=== PATIENT | female | born 1975 | race Caucasian/White ===

== ENCOUNTER 2023-07-09 01:18 | Emergency (ER) | payer OTHER, SELFPAY ==
--- NOTE | ~2023-07-09 | CT_ITS ---
EXAMINATION: CT ABDOMEN AND PELVIS WITHOUT CONTRAST CLINICAL INFORMATION: Abdominal pain. COMPARISON: None available. TECHNIQUE: Multidetector volumetric imaging was performed from the superior aspect of the liver through the pubic symphysis. Sagittal and coronal reformatted images were obtained on the technologist's workstation. This CT examination was performed using dose optimization techniques as appropriate, variously including the following: *Automated exposure control *Adjustment of mA and/or kV according to patient size (this includes techniques or standardized protocols for targeted exams where dose is matched to indication/reason for exam; i.e. extremities or head) *Use of iterative reconstruction technique DLP: 438 mGy-cm FINDINGS: LUNG BASES: The visualized lung bases are unremarkable. LIVER, GALLBLADDER, AND BILIARY TREE: The liver is normal in size, shape, and attenuation. No focal hepatic lesion or biliary ductal dilatation is present. The gallbladder is unremarkable with no evidence of radiopaque gallstones, gallbladder wall thickening, or obvious pericholecystic inflammatory changes. PANCREAS: Unremarkable. SPLEEN: Unremarkable. ADRENAL GLANDS: Unremarkable. KIDNEYS AND URETERS: The kidneys are normal in size, shape, and attenuation. No hydronephrosis, hydroureter, or calculi seen. No perinephric stranding. BLADDER: Unremarkable. GASTROINTESTINAL TRACT: There is diffuse mild to moderate colonic thickening. The appendix is not identified. ABDOMINAL WALL: No significant hernia is appreciated. LYMPH NODES: Normal. VASCULAR: Unremarkable. PELVIC VISCERA: An IUD is in place. There is a small amount of free fluid within the pelvis. OSSEOUS STRUCTURES: Unremarkable. CT/CT abdomen pelvis wo IV con IMPRESSION: Diffuse colonic thickening consistent with a diffuse colitis. Small amount of free fluid within the pelvis. Fleischner guidelines were followed.
[2023-07-09 01:26] VITALS: BP 118/72; PULSE 86; RESP 16; TEMP 36.8; O2SAT 97; BMI 26.9
[2023-07-09 01:42] LABS: Basophils Percent Auto 0.2 % (0-2); Eosinophils Absolute Auto 0.1 X10*3/uL (0.0-0.4); Eosinophils Percent Auto 0.6 % (0-4); Hematocrit 40.2 % (37.0-47.0); Hemoglobin 13.2 g/dl (12.0-16.0); Imm Gran Abs Auto 0.02 X10*3/uL (0.00-0.03); Imm Gran Pct Auto 0.2 % (0.0-0.4); Lymphocytes Absolute Auto 1.2 X10*3/uL (1.2-4.9); Lymphocytes Percent Auto 10.5 % (20-40); MANUAL DIFF FLAG NO; Mean Corpuscular HGB Conc 32.8 g/dl (31.0-35.0); Mean Corpuscular Hemoglobin 26.7 pg (27.0-33.0); Mean Corpuscular Volume 81.4 fL (80.0-98.0); Mean Platelet Volume 10.3 fL (9.4-12.3); Monocytes Absolute Auto 0.6 X10*3/uL (0.1-1.2); Monocytes Percent Auto 5.2 % (2-11); Neutrophils Absolute Auto 9.8 x10*3/uL (2.0-8.3); Neutrophils Percent Auto 83.3 % (45-73); Platelet Count 178 X10*3/uL (160-400); Red Blood Count 4.94 X10*6/uL (4.20-5.50); Red Cell Distribution Width 13.2 % (11.0-16.0); White Blood Count 11.8 X10*3/uL (4.8-10.8)
[2023-07-09 01:48] LABS: Appearance Urine Turbid; Color Urine Dark Yellow; Glucose Urine UA Negative (Negative); Leukocyte Esterase Urine Small (1+) (Negative); Nitrite Urine Negative (Negative); PH 5.5 (5.0-9.0); Specific Gravity - Urine >= 1.030 (1.005-1.025); UMIC TRIGGER UACC YES; Urine Blood Small (1+) (Negative); Urine Ketones 15 mg/dL (Negative); Urine Protein 30 (1+) mg/dL (Neg-Trace)
[2023-07-09 01:56] LABS: Alanine Aminotransferase 8 U/L (0-31); Alkaline Phosphatase 80 U/L (39-117); Anion Gap 12 (12-20); Aspartate Amino Transferase 20 U/L (5-31); Bilirubin Total 0.5 mg/dL (0.0-1.0); Blood Urea Nitrogen 6 mg/dL (9-16); Calcium 8.9 mg/dL (8.4-10.2); Carbon Dioxide 23 mmol/L (22-29); Chloride 104 mmol/L (96-108); Creatinine Clr Calc Pharmacy 63.2; Estimated Glomerular Filt Rate > 60; Glucose Random 121 mg/dL (60-115); Lipase 24 U/L (8-78); Potassium 3.3 mmol/L (3.3-5.1); Sodium 136 mmol/L (135-145); Total Protein 7.5 g/dL (6.5-8.0)
[2023-07-09 01:58] LABS: Bacteria Urine 4+ (None Seen); Squamous Epithelial Cell Urine >20 /HPF (0-2); UACC Culture Trigger YES
--- NOTE | 2023-07-09 02:41 | ED.ABDPAIN ---
HPI - Abdominal Pain General Chief Complaint: Nausea/Vomiting/Diarrhea Stated Complaint: Diarrhea, Abd Pain Time Seen by Provider: 07/09/23 02:33 Source: patient Mode of arrival: ambulatory Limitations: no limitations History of Present Illness HPI narrative: Patient otherwise healthy just returned from [facility] 3 days ago was sent been having diffuse abdominal cramping with diarrhea no nausea no vomiting of unable to hold down any liquids because of pain pain is localized mostly in the mid abdomen no urinary symptoms no chills no other family member sick Related Data Previous Rx's Medication Instructions Recorded ciprofloxacin HCl 500 mg tablet 500 mg PO BID #10 tabs 07/09/23 (Cipro) dicyclomine 20 mg tablet 20 mg PO QID PRN abdominal pain 07/09/23 #20 tabs metronidazole 500 mg tablet 500 mg PO BID 5 days #10 tabs 07/09/23 ondansetron 4 mg disintegrating 4 mg PO Q6-8H PRN nausea and 07/09/23 tablet vomiting #7 tabs Allergies Allergy/AdvReac Type Severity Reaction Status Date / Time clindamycin AdvReac Unknown Verified 07/09/23 01:25 iodine AdvReac Rash Verified 07/09/23 01:24 Latex, Natural Rubber AdvReac Hives Verified 07/09/23 01:24 Penicillins AdvReac Anaphylaxis Verified 07/09/23 01:23 seafood AdvReac Hives Verified 07/09/23 01:26 Review of Systems Review of Systems Yes all other systems are reviewed and are negative [facility] Social History Social History Alcohol intake: never Smoked in Last 30 Days: No Use of substances other than those prescribed or required for medical reasons: No Advance Directives: No Advance Directives Information Provided: Yes Patient : No Physical Exam ED Vital Signs: Vital Signs - 24 hr 07/09/23 01:26 07/09/23 04:00 07/09/23 05:50 Temperature 98.3 F Pulse Rate 86 68 67 Respiratory Rate 16 14 14 Blood Pressure 118/72 124/79 128/83 Pulse Oximetry 97 98 99 Oxygen Delivery Method Room Air Room Air Room Air 07/09/23 07:12 Temperature Pulse Rate 68 Respiratory Rate 18 Blood Pressure 122/75 Pulse Oximetry 99 Oxygen Delivery Method Room Air BMI result Body Mass Index 26.9 Appearance: Alert. Oriented X3. Mild discomfort Eyes: No pallor/icterus ENT: Pharynx normal. Oral Mucosa moist Neck: Normal inspection. Neck supple. CVS: Normal heart rate and rhythm. Pulses normal. Respiratory: No respiratory distress. Equal air entry bilateral, no wheezing/rales/rhonchi Abdomen: Soft , diffuse mid abdominal tenderness no rebound tenderness or guarding Bowel sounds are present, no mass palpable, no CVA tenderness Skin: Skin warm and dry. Normal skin color. Normal skin turgor. Extremities: No lower extremity edema. No calf tenderness Neuro: Oriented X 3. Medical Decision Making Medical Decision Making [facility] Narrative: Patient acute enteritis came from [facility] food induced discharge patient home on Cipro and Flagyl for 5 days Differential Diagnosis Differential Diagnoses: The differential diagnosis associated with the presentation includes Pancreatitis/gastritis/colitis Lab Data [facility] Lab Attestation statement: I reviewed the patient's lab results. 07/09/23 01:36 07/09/23 01:36 Labs: Lab Results 07/09/23 07/09/23 07/09/23 Range/Units 01:36 01:41 06:09 WBC 11.8 H (4.8-10.8) X10*3/uL RBC 4.94 (4.20-5.50) X10*6/uL Hgb 13.2 (12.0-16.0) g/dl Hct 40.2 (37.0-47.0) % MCV 81.4 (80.0-98.0) fL MCH 26.7 L (27.0-33.0) pg MCHC 32.8 (31.0-35.0) g/dl RDW 13.2 (11.0-16.0) % Plt Count 178 (160-400) X10*3/uL MPV 10.3 (9.4-12.3) fL Immature Gran % (Auto) 0.2 (0.0-0.4) % Neut % (Auto) 83.3 H (45-73) % Lymph % (Auto) 10.5 L (20-40) % [place] % (Auto) 5.2 (2-11) % Eos % (Auto) 0.6 (0-4) % Baso % (Auto) 0.2 (0-2) % Lymph # (Auto) 1.2 (1.2-4.9) X10*3/uL [place] # (Auto) 0.6 (0.1-1.2) X10*3/uL Eos # (Auto) 0.1 (0.0-0.4) X10*3/uL Baso # (Auto) 0.0 (0.0-0.2) X10*3/uL Abs Immat Gran (auto) 0.02 (0.00-0.03) X10*3/uL Absolute Neuts (auto) 9.8 H (2.0-8.3) x10*3/uL Absolute Nucleated RBC 0.000 (0.0-0.012) X10*3/uL Nucleated RBC % (auto) 0.0 (0.0-0.2) /100WBC Sodium 136 (135-145) mmol/L Potassium 3.3 (3.3-5.1) mmol/L Chloride 104 (96-108) mmol/L Carbon Dioxide 23 (22-29) mmol/L Anion Gap 12 (12-20) BUN 6 L (9-16) mg/dL Creatinine 0.86 (0.5-1.4) mg/dL Estim Creat Clear Calc 63.2 Estimated GFR > 60 Random Glucose 121 H (60-115) mg/dL Lactic Acid 0.8 (0.5-2.0) mmol/L Calcium 8.9 (8.4-10.2) mg/dL Total Bilirubin 0.5 (0.0-1.0) mg/dL AST 20 (5-31) U/L ALT 8 (0-31) U/L Alkaline Phosphatase 80 (39-117) U/L Total Protein 7.5 (6.5-8.0) g/dL Albumin 4.0 (3.5-5.0) g/dL Lipase 24 (8-78) U/L Urine Color Dark Yellow Urine Appearance Turbid Urine pH 5.5 (5.0-9.0) Ur Specific [place] >= 1.030 H (1.005-1.025) Urine Protein 30 (1+) H (Neg-Trace) mg/dL Urine Glucose (UA) Negative (Negative) mg/dL Urine Ketones 15 (Negative) mg/dL Urine Blood Small (1+) H (Negative) Urine Nitrite Negative (Negative) Ur Leukocyte Esterase Small (1+) H (Negative) Urine RBC 11-20 H (0-2) /HPF Urine WBC 11-20 H (0-5) /HPF Ur Squamous Epith Cells >20 (0-2) /HPF Urine Bacteria 4+ (None Seen) Hyaline Casts 3-5 (0-2) /LPF Urine Test NEGATIVE (NEGATIVE) Independent Interpretation I performed an independent interpretation of an: CT Scan Interpretation: Terminal ileum inflammation Radiology Impression Discussion of test interpretation with radiology: I have reviewed the radiologist's reading. Radiologist Impression: Colitis Medications Administered Discontinued Medications Generic Name Dose Route Start Last Admin Trade Name Freq PRN Reason Stop Dose Admin Dicyclomine HCl 20 mg 07/09/23 05:59 07/09/23 06:08 Dicyclomine Hcl 10 Mg Capsule PO 07/09/23 06:00 20 mg ONCE ONE Administration Sodium Chloride 1,000 mls @ 999 mls/hr 07/09/23 02:53 07/09/23 05:00 Ns IV 07/09/23 03:53 Infused .Q1H1M ONE Infusion Levofloxacin 500 mg 07/09/23 03:59 07/09/23 04:47 Levofloxacin 500 Mg Tablet PO 07/09/23 04:00 500 mg ONCE ONE Administration Metronidazole 500 mg 07/09/23 03:59 07/09/23 04:47 Metronidazole 500 Mg Tablet PO 07/09/23 04:00 500 mg ONCE ONE Administration Morphine Sulfate 4 mg 07/09/23 02:53 07/09/23 03:18 Morphine Sulfate 4 Mg/Ml Cartridge IVPUSH 07/09/23 02:54 4 mg ONCE ONE Administration Protocol Ondansetron HCl 4 mg 07/09/23 02:56 07/09/23 03:18 Ondansetron Hcl 4 Mg/2 Ml Vial IVPUSH 07/09/23 02:57 4 mg ONCE ONE Administration Discharge Plan Discharge Clinical Impression: Enteritis Patient Disposition: Home, Self-Care Instructions: Gastroenteritis (ED) Additional Instructions: Drink plenty of fluids Take antibiotic as prescribed Medications for abdominal cramping and nausea as prescribed Prescriptions: New ciprofloxacin HCl [Cipro] 500 mg tablet 500 mg PO BID Qty: 10 0RF metronidazole 500 mg tablet 500 mg PO BID 5 Days Qty: 10 0RF dicyclomine 20 mg tablet 20 mg PO QID PRN (Reason: abdominal pain) Qty: 20 0RF ondansetron 4 mg tablet,disintegrating 4 mg PO Q6-8H PRN (Reason: nausea and vomiting) Qty: 7 0RF Interventions: ED Discharge Assessment Last Done: 07/09/23 07:15 Discharge Date/Time: 07/09/23 07:15
[2023-07-09] MEDS: ondansetron HCL 4 MG/2 ML VIAL IVPUSH (03:18)
[2023-07-09] MEDS: Morphine Sulfate 4 MG/ML CARTRIDGE IVPUSH (03:18)
[2023-07-09] MEDS: 0.9 % Sodium Chloride 1,000 ML 999 ML IV (03:22)
[2023-07-09 03:38] LABS: UPreg QC Valid YES; Urine Pregnancy NEGATIVE (NEGATIVE)
[2023-07-09 04:00] VITALS: BP 124/79; PULSE 68; RESP 14; O2SAT 98
[2023-07-09] MEDS: metroNIDAZOLE 500 MG TABLET PO (04:47)
[2023-07-09] MEDS: levoFLOXacin 500 MG TABLET PO (04:47)
[2023-07-09 05:50] VITALS: BP 128/83; PULSE 67; RESP 14; O2SAT 99
[2023-07-09] MEDS: Dicyclomine HCl 10 MG CAPSULE 20 MG PO (06:08)
--- NOTE | 2023-07-09 06:24 | PC.NURSE ---
Pt c/o abdominal pain, nausea and diarrhea X2 days. Meds and fluids given per NOV, #20 IV placed in R-AC. CT completed. Lactic pending. PT in bed resting, call rdz in place.
[2023-07-09 06:25] LABS: Lactic Acid 0.8 mmol/L (0.5-2.0)
[2023-07-09 07:12] VITALS: BP 122/75; PULSE 68; RESP 18; O2SAT 99
== END 2023-07-09 07:15 | disposition home or self-care (01) ==
PROVIDERS: Emergency Provider Internal Medicine; PCP Internal Medicine
DX: K52.9 Noninfective gastroenteritis and colitis, unspecified (principal); R11.2 Nausea with vomiting, unspecified
CPT/HCPCS: 36415; 74176; 80053; 81001; 81025; 83605; 83690; 85025; 87086; 87088; 87186; 96361; 96374; 96375; 99284; J2270; J2405

== ENCOUNTER 2023-07-10 03:02 | Emergency (ER) | payer OTHER, SELFPAY ==
[2023-07-10 03:05] VITALS: BP 132/81; PULSE 90; RESP 18; TEMP 36.6; O2SAT 98; BMI 26.9
--- OUTSIDE RECORDS SUMMARY | 2023-07-10 03:20 | XMS_ITS | Continuity of Care Document ---
Author Name Unknown Organization [facility] Address [address] [place] [address]- Care Team Providers Care Compounder Helper Name Role Phone Ric SELLERS, Bonnie Primary Care Physician [phone] [place] [facility] [place]20 [facility] [address] [place], [place] [address] Attending Physician: Tere Felipe Admitting Physician: AdmtrTere Referring Physician: Admtr, Ar8 Allergies, Adverse Reactions, Alerts Substance Reaction Severity Status doxycycline emesis Active clindamycin Active Latex erythema Active iodine topical Skin rash Active penicillins Active Seafood SWELLING,ITCHING Active Immunizations Given and Recorded Vaccine Date Status Refusal Reason tetanus/diphtheria/pertussis, acel(Tdap) 06/19/20 Given influenza virus vaccine, inactivated 06/19/20 Give n Medications Compression Stockings See Instructions, # 1 each, Refills 2, Tot. Refills 2, Maintenance, surgical, thigh high length 20-30 mm Hg dx: I83.899, 06/24/20 15:06:00 EDT, Supply Start Date: 06/24/20 Status: Ordered Mirena 52 mg intrauteral device 1 each = 52 mg, Intrauterine, Once, # 1 each, 0 Refills, Maintenance Start Date: 03/22/12 Status: Ordered Problem List Condition Effective Dates Status Health Status Inform ant Abnormal cervical smear(Confirmed) Active Acne(Confirmed) Active Depressive disorder(Confirmed) Active Hypoglycemia, Unspecified(Confirmed) Active Irregular Menstrual Cycle(Confirmed) Active Menorrhagia with irregular cycle(Confirmed) Active Migraine headache(Confirmed) Active Social History Social History Type Response Smoking Status Never smoker; Tobacc o user in household: No entered on: 07/01/15 Sex Female
--- OUTSIDE RECORDS SUMMARY | 2023-07-10 03:20 | XMS_ITS | Continuity of Care Document ---
Author Name Unknown Organization [facility] Address [address] [place] [address]- Care Team Providers Care Equipment Service Technician Name Role Phone Ric SELLERS, Bonnie Primary Care Physician Encounter [facility] [place] Date(s): 09/19/20 - 10/19/20 [facility] [address] [place], [place] [address] Allergies, Adverse Reactions, Alerts Substance Reaction Severity Status doxycycline emesis Active clindamycin Active iodine topical Skin rash Active penicillins Active Latex erythema Active Seafood SWELLING,ITCHING Active Immunizations Given and [...]
--- OUTSIDE RECORDS SUMMARY | 2023-07-10 03:20 | XMS_ITS | Continuity of Care Document ---
Author Name Unknown Organization [facility] Address [address] [place] [address]- Care Team Providers Care Marketing Support Assistant Name Role Stallion Manager MD, Fabian Piper Primary Care Physician [place] [facility] [place]/31/22 - 09/30/22 [facility] [address] [address]- Allergies, Adverse Reactions, Alerts Substance Reaction Severity Status doxycycline emesis Active clindamycin Active iodine topical Skin rash Active penicillins Active Latex erythema Active Seafood SWELLING,ITCHING Active Immunizations Given and Recorded Vaccine Date Status Refusal Reason influenza virus vaccine, inactivated 06/19/21 Clark rded influenza virus vaccine, inactivated 06/19/20 Give n SARS-CoV-2 (COVID-19) mRNA BNT-162b2 vac 06/19/21 Recorded SARS-CoV-2 (COVID-19) mRNA BNT-162b2 vac 12/24/20 Recorded SARS-CoV-2 (COVID-19) mRNA BNT-162b2 vac 12/03/20 Recorded tetanus/diphtheria/pertussis, acel(Tdap) 06/19/20 Given Medications Compression Stockings See Instructions, # 1 each, Refills 2, Tot. Refills 2, Maintenance, surgical, thigh high length 20-30 mm Hg dx: I83.899, 06/24/20 15:06:00 EDT, Supply Start Date: 06/24/20 Status: Ordered Mirena 52 mg intrauteral device 1 each = 52 mg, Intrauterine, Once, # 1 each, 0 Refills, Maintenance Start Date: 03/22/12 Status: Ordered Problem List Condition Confirmation Course Effective Dates Status Health St atus Informant Abnormal cervical smear Confirmed Active Acne Confirmed Active Depressive disorder Confirmed Active Hypoglycemia, Unspecified Confirmed Active Irregular Menstrual Cycle Confirmed Active Menorrhagia with irregular cycle Confirmed Active Migraine headache Confirmed Active Social History Social History Type Response Smoking Status Never (less than 100 in lifetime) entered on: 02/26/22 Sex Female Patient Care team information Care Team Personnel Name: Fabian Duval MD Position: [facility] Primary Care Physician Member Role: PCP Address: Address: [address] [place] [address]- Care Team Related Persons Name: AIXA ROE Address: [address] [place] [address]
--- OUTSIDE RECORDS SUMMARY | 2023-07-10 03:20 | XMS_ITS | Continuity of Care Document ---
Author Name Unknown Organization [facility] Address [address] [place] [address]- Care Team Providers Care Wet Process Miller Head Assistant Name Role Phone Ric SELLERS, Bonnie Primary Care Physician [phone] [id number] Date[facility] 06/24/20 - 09/07/20 [facility] [address] [place] [address]- Attending Physician: Zoran Perez MD Admitting Physician: Zoran Perez MD Referring Physician: Bonnie Larios MD Allergies, Adverse Reactions, Alerts Substance Reaction Severity [...] EDT, Supply Start Date: 06/24/20 Status: Ordered Liletta 52 mg intrauteral device 1 each = 52 mg, Intrauterine, Once, # 1 each, 0 Refills, Soft Stop, 01/09/18 13:17:18 EDT Start Date: 01/09/18 Status: Ordered Mirena 52 mg intrauteral device [...]
--- OUTSIDE RECORDS SUMMARY | 2023-07-10 03:20 | XMS_ITS | Continuity of Care Document ---
Author Name Unknown Organization [facility] Address [address] [place] [address]- Care Team Providers Care Stencil Cutter Name Role Machine Cloth MeasurerFabian Duval MD Primary Care Physician [phone] [place] [facility] [id number] Date(s): 03/22/22 - 04/21/[address] [address]- Attending Physician: Admtr, Perfecto8 Admitting Physician: Admtr, Ar8 Referring Physician: Admtr, Ar8 Allergies, Adverse Reactions, Alerts Substance Reaction Severity Status doxycycline emesis Active clindamycin Active Seafood SWELLING,ITCHING Active iodine topical Skin rash Active penicillins Active Latex erythema Active Immunizations Given and Recorded Vaccine Date [...] EDT, Supply Start Date: 06/24/20 Status: Ordered hydrOXYzine hydrochloride 25 mg oral tablet 1 tablet = 25 mg, By Mouth, Daily, PRN Insomnia, for 30 days, # 30 tablet, 1 Refills, Acute 05/21/22 15:23:00 EDT, 03/22/22 15:23:00 EDT, Tablet, [id number], Partial fill upon patient requestif the prescription is for a schedule II opioid leanne... Start Date: 03/22/22 Stop Date: 05/21/22 Status: Ordered Mirena 52 mg intrauteral device [...]
--- OUTSIDE RECORDS SUMMARY | 2023-07-10 03:20 | XMS_ITS | Continuity of Care Document ---
Author Name Unknown Organization [facility] Address [address] [place] [address]- Care Team Providers Care Healthcare Administrator Name Role Laboratory Supervisor MD, Fabian Piper Primary Care Physician [place] [facility] [place]18/22 [facility] [address] [address]- Allergies, Adverse Reactions, Alerts Substance Reaction Severity [...] Team Personnel Name: Fabian Duval MD Position: [facility] Primary Care Physician Member Role: PCP Address: Address: [address] [place] [address]- Care Team Related Persons Name: AIXA ROE Address: [address] [place] [address]
--- OUTSIDE RECORDS SUMMARY | 2023-07-10 03:20 | XMS_ITS | Continuity of Care Document ---
Author Name Unknown Organization [facility] Address [address] [place] [address]- Care Team Providers Care Senior Warehouse Clerk Name Role Phone Nicole SELLERS, Davion Mckinley Primary Care Physician [place] [facility] [place] - 06/12/[address] [address] [place] Allergies, Adverse Reactions, Alerts Substance Reaction Severity Status doxycycline emesis Active clindamycin Active penicillins Active Latex erythema Active Seafood SWELLING,ITCHING Active Medications Liletta 52 mg intrauteral device 1 each [...]
--- OUTSIDE RECORDS SUMMARY | 2023-07-10 03:20 | XMS_ITS | Continuity of Care Document ---
Author Name Unknown Organization [facility] Address [address] [place] [address]- Care Team Providers Care Simulation Technician Name Role Private Branch Exchange Repairer MD, Fabian Piper Primary Care Physician Encounter [facility] [place] Date(s): 08/12/22 - 09/11/22 [facility] [address] [address]- Attending Physician: Admtr, Ar8 Allergies, Adverse Reactions, Alerts Substance Reaction Severity Status doxycycline emesis Active clindamycin Active penicillins Active iodine topical Skin rash Active Latex erythema Active Seafood SWELLING,ITCHING Active [...] Care team information Care Team Personnel Name: Banker SELLERS, Fabian Piper Position: S Primary Care Physician Member Role: PCP Address: Address: [address] [place] [address]- Care Team Related Persons Name: AIXA ROE Address: home [address] [place] [address] [address] [place] [address]
--- OUTSIDE RECORDS SUMMARY | 2023-07-10 03:20 | XMS_ITS | Continuity of Care Document ---
Author Name Unknown Organization [facility] Address [address] [place] [address]- Care Team Providers Care Pharmacy Scheduler Name Role Bed LasterFabian Duval MD Primary Care Physician [phone] Encounter [facility] [place] Date(s): 04/18/23 - 05/18/[address] [address] Allergies, Adverse Reactions, Alerts Substance Reaction Severity [...] Name: Banker SELLERS, Fabian Piper Position: S Physician - Primary Care Member Role: PCP Address: Address: [address] [place] [address]- Care Team Related Persons Name: AIXA ROE Address: [address] [place] [address]
--- OUTSIDE RECORDS SUMMARY | 2023-07-10 03:20 | XMS_ITS | Continuity of Care Document ---
Author Name Unknown Organization [facility] Address [address] [place] [address]- Care Team Providers Care Belly Roller Name Role Lidar TechnicianFabian Duval MD Primary Care Physician [phone] Encounter [facility] Date(s): 03/09/22 - 04/08/[address] [address] Allergies, Adverse Reactions, Alerts Substance Reaction [...] 15:23:00 EDT, 03/22/22 15:23:00 EDT, Tablet, [id number], Partial fill upon patient requestif the prescription [...]
--- OUTSIDE RECORDS SUMMARY | 2023-07-10 03:20 | XMS_ITS | Continuity of Care Document ---
Author Name Unknown Organization [facility] Address [address] [place] [address]- Care Team Providers Care Service Promoter Salesperson Name Role Human Resources Project ManagerFabian Duval MD Primary Care Physician Encounter [facility] [place] Date(s): 06/23/21 - 07/23/[address] [address]- Attending Physician: Admtr, Ar8 Allergies, Adverse Reactions, Alerts Substance Reaction Severity Status doxycycline emesis Active clindamycin Active penicillins Active Seafood SWELLING,ITCHING Active iodine topical Skin rash Active Latex erythema Active Immunizations Given and [...]
--- OUTSIDE RECORDS SUMMARY | 2023-07-10 03:20 | XMS_ITS | Continuity of Care Document ---
Author Name Unknown Organization [facility] Address [address] [place] [address]- Care Team Providers Care Business Continuity Global Director Name Role Puff Iron Operator MD, Fabian Piper Primary Care Physician Encounter [facility] Date(s): 04/07/21 - 05/07/21 [facility] [address] [address]- Allergies, Adverse Reactions, Alerts Substance Reaction Severity [...]
--- OUTSIDE RECORDS SUMMARY | 2023-07-10 03:20 | XMS_ITS | Continuity of Care Document ---
Author Name Unknown Organization [facility] Address [address] [place] [address]- Care Team Providers Care Size Worker Name Role Filling Machine OperatorFabian Duval MD Primary Care Physician [phone] Encounter [facility] Date(s): 03/05/22 - 04/04/[address] [address] Allergies, Adverse Reactions, Alerts Substance Reaction [...] 15:23:00 EDT, 03/22/22 15:23:00 EDT, Tablet, [id number], Partial fill upon patient requestif the prescription [...]
--- OUTSIDE RECORDS SUMMARY | 2023-07-10 03:20 | XMS_ITS | Continuity of Care Document ---
Author Name Unknown Organization [facility] Address [address] [place] [address]- Care Team Providers Care Foxpro Developer Name Role Inside TruckerFabian Duval MD Primary Care Physician [place] [facility] [place] Date(s[place] 02/17/23 - 03/19/[address] [address]- Allergies, Adverse Reactions, Alerts Substance Reaction Severity [...] Primary Care Member Role: PCP Address: Address: [address] [place] [address]- Care Team Related Persons Name: AIXA ROE Address: [address] [place] [address]
--- OUTSIDE RECORDS SUMMARY | 2023-07-10 03:20 | XMS_ITS | Continuity of Care Document ---
Author Name Unknown Organization [facility] Address [address] [place] [address]- Care Team Providers Care Chief Projectionist Name Role Phone Ric SELLERS, Bonnie Primary Care Physician [phone] Encounter [facility] [place] Date(s): 05/23/20 - 06/22/20 [facility] [address] [address]- [facility] Attending Physician: Admtr, Ar8 Allergies, Adverse Reactions, Alerts Substance Reaction Severity Status doxycycline emesis Active clindamycin Active iodine topical Skin rash Active penicillins Active Seafood SWELLING,ITCHING Active Latex erythema Active Immunizations Given and Recorded Vaccine Date Status Refusal Reason tetanus/diphtheria/pertussis, acel(Tdap) 06/19/20 Given influenza virus vaccine, inactivated 06/19/20 Give n Medications Liletta 52 mg intrauteral device 1 [...]
--- OUTSIDE RECORDS SUMMARY | 2023-07-10 03:20 | XMS_ITS | Continuity of Care Document ---
Author Name Unknown Organization [facility] Address [address] [place] [address]- Care Team Providers Care Generation Manager Name Role Phone Ric SELLERS, Bonnie Primary Care Physician Encounter [facility] ACCT R [id number] Date(s): 08/04/20 - 09/03/20 [facility] [address] [place] [address]- Attending Physician: Tere Felipe Admitting Physician: Tere Felipe Referring Physician: AdmTere fraga Allergies, Adverse Reactions, Alerts Substance Reaction Severity Status doxycycline emesis Active clindamycin Active iodine topical Skin rash Active Latex erythema Active penicillins Active Seafood SWELLING,ITCHING Active Immunizations [...]
--- OUTSIDE RECORDS SUMMARY | 2023-07-10 03:20 | XMS_ITS | Continuity of Care Document ---
Author Name Unknown Organization [facility] Address [address] [place] [address]- Care Team Providers Care Arcade Attendant Name Role Phone Ric SELLERS, Bonnie Primary Care Physician Encounter [facility] Date(s): 06/11/20 - 07/11/20 [facility] [address] [place] [address]- Attending Physician: Tere Felipe Admitting Physician: Tere Felipe Referring Physician: AdmtrTere Allergies, Adverse Reactions, Alerts Substance Reaction Severity [...]
--- OUTSIDE RECORDS SUMMARY | 2023-07-10 03:20 | XMS_ITS | Continuity of Care Document ---
Author Name Unknown Organization [facility] Address [address] [place] [address]- Care Team Providers Care Research Professional Name Role Feed In WorkerFabian Duval MD Primary Care Physician Encounter [facility] [place]CT [place] [id number] Date(s): 03/18/23 - 04/17/[address] [address]- Attending Physician: Admtr, Ar8 Admitting Physician: Admtr, Ar8 Referring Physician: Admtr, [...] Team Personnel Name: Fabian Duval MD Position: S Physician - Primary Care Member Role: PCP Address: Address: [address] [place] [address]- Care Team Related Persons Name: AIXA ROE Address: home [address] [place] [address] [address] [place] [address]
--- OUTSIDE RECORDS SUMMARY | 2023-07-10 03:20 | XMS_ITS | Continuity of Care Document ---
Author Name Unknown Organization [facility] Address [address] [place] [address]- Care Team Providers Care Power Press Operator Name Role Phone Bonnie Larios MD Primary Care Physician [phone] [facility] Date(s): 09/25/20 - 10/02/20 [facility] [address] [place], [place] [address] Attending Physician: Erich Anand MD Admitting Physician: Erich Anand MD Referring Physician: Bonnie Larios MD Allergies, [...] with irregular cycle(Confirmed) Active Migraine headache(Confirmed) Active Vital Signs Most recent to oldest [Reference Range]: 1 Height 152 cm (09/25/20 1:48 PM) Oxygen Saturation [94-100 %] 96 % (09/25/20 1:48 PM) Pulse Rate [55-90 bpm] 76 bpm (09/25/20 1:48 PM) Blood Pressure [90-138/55-84 mm Hg] 116/ 68mm Hg (09/25/20 1:48 PM) Blood pressure sites Arm, right (09/25/20 1:48 PM) Social History Social History Type Response Smoking Status Never smoker; Tobacc o user in household: No entered on: 07/01/15 Sex Female
--- OUTSIDE RECORDS SUMMARY | 2023-07-10 03:20 | XMS_ITS | Continuity of Care Document ---
Author Name Unknown Organization [facility] Address [address] [place] [address]- Care Team Providers Care Laboratory Sampler Name Role Renal Social WorkerFabian Duval MD Primary Care Physician [phone] Encounter [facility] Date(s): 12/21/22 - 01/20/[address] [address]- Allergies, Adverse Reactions, Alerts Substance Reaction Severity [...] Personnel Name: Banker SELLERS, Fabian Piper Position: [facility] Primary Care Physician Member Role: PCP Address: Address: [address] [place] [address]- Care Team Related Persons Name: AIXA ROE Address: [address] [place] [address]
--- OUTSIDE RECORDS SUMMARY | 2023-07-10 03:20 | XMS_ITS | Continuity of Care Document ---
Author Name Unknown Organization [facility] Address [address] [place] [address]- Care Team Providers Care Brush Or Broom Cutter Name Role PuttierFabian Duval MD Primary Care Physician [place] [facility] [place] Date(s): 12/17/22 - 01/16/[address] [address]- Allergies, Adverse Reactions, Alerts Substance Reaction Severity [...] Personnel Name: Banker SELLERS, Fabian Piper Position: [facility] Primary Care Physician Member Role: PCP Address: Address: [address] [place] [address]- Care Team Related Persons Name: AIXA ROE Address: [address] [place] [address]
--- OUTSIDE RECORDS SUMMARY | 2023-07-10 03:20 | XMS_ITS | Continuity of Care Document ---
Author Name Unknown Organization [facility] Address [address] [place] [address]- Care Team Providers Care Skin Installer Name Role Supervisor Boat Outfitting MD, Fabian Piper Primary Care Physician Encounter [facility] Date(s): 08/19/22 - 09/18/22 [facility] [address] [address]- Allergies, Adverse Reactions, Alerts Substance Reaction Severity [...] Team Personnel Name: Fabian Duval MD Position: [facility] Primary Care Physician Member Role: PCP Address: Address: [address] [place] [address]- Care Team Related Persons Name: AIXA ROE Address: [address] [place] [address]
--- OUTSIDE RECORDS SUMMARY | 2023-07-10 03:20 | XMS_ITS | Continuity of Care Document ---
Author Name Unknown Organization [facility] Address [address] [place] [address]- Care Team Providers Care Business Operations Coordinator Name Role Phone Ric SELLERS, Bonnie Primary Care Physician En[place] [facility] [place] [place] Date(s): 05/27/20 - 06/26/[address] [address]- [facility] Allergies, Adverse Reactions, Alerts Substance Reaction Severity [...]
--- OUTSIDE RECORDS SUMMARY | 2023-07-10 03:21 | XMS_ITS | Continuity of Care Document ---
Author Name Unknown Organization [facility] Address [address] [place] [address]- Care Team Providers Care Pipefitter Helper Name Role Phone Ric SELLERS, Bonnie Primary Care Physician Encounter [facility] [id number] Date(s): 06/24/20 - 07/01/20 [facility] [address] [place] [address]- [facility] Attending Physician: Sahil Aragon MD Admitting Physician: Sahil Aragno MD Referring Physician: Bonnie Larios MD Allergies, [...] oldest [Reference Range]: 1 Height 152 cm (06/24/20 2:20 PM) Weight 58.06 kg (06/24/20 2:20 PM) Oxygen Saturation [94-100 %] 100 % (06/24/20 2:20 PM) Pulse Rate [55-90 bpm] 70 bpm (06/24/20 2:20 PM) Body Mass Index [18.5-24.99] 25.13 *H* (06/24/20 2:20 PM) Blood Pressure [90-138/55-84 mm Hg] 110/ 70mm Hg (06/24/20 2:20 PM) Blood pressure sites Arm, left (06/24/20 2:20 PM) Weight Obtained Via Patient/family state d (06/24/20 2:20 PM) Social History Social History Type Response Smoking Status Never smoker; Tobacc o user in household: No entered on: 07/01/15 Sex Female
--- OUTSIDE RECORDS SUMMARY | 2023-07-10 03:21 | XMS_ITS | Continuity of Care Document ---
Author Name Unknown Organization [facility] Address [address] [place] [address]- Care Team Providers Care Mold Changer Name Role Phone Ric SELLERS, Bonnie Primary Care Physician [phone] Encounter [facility] [place] Date(s): 09/23/20 - 10/23/20 [facility] [address] [place], [place] [address] Allergies, Adverse Reactions, Alerts Substance Reaction [...]
--- OUTSIDE RECORDS SUMMARY | 2023-07-10 03:21 | XMS_ITS | Continuity of Care Document ---
Author Name Unknown Organization [facility] Address [address] [place] [address]- Care Team Providers Care Hydramatic Mechanic Name Role Inspector Metal FabricatingFabian Duval MD Primary Care Physician [phone] Encounter [facility] [place] Date(s): 05/17/23 - 06/16/[address] [address] Allergies, Adverse Reactions, Alerts Substance Reaction [...] Primary Care Member Role: PCP Address: Address: [address] [place] [address]- Care Team Related Persons Name: AIXA ROE Address: [address] [place] [address]
--- OUTSIDE RECORDS SUMMARY | 2023-07-10 03:21 | XMS_ITS | Patient Health Record ---
Author Name Unknown [facility] Address [address] [place] [address] Care Team Providers Care Head Of Merchandise Buying Name Role Phone Ingrid Torres Unavailable [phone] ALLERGIES Allergen (clinical drug ingredient) Drug/Non Drug Allergy documented on EMR Reaction Allergy Type Onset Date Status berncine (uncoded) Unknown Allergy A ctive shrimp allergenic extract Shrimp (Diagnostic) Unknown Drug Allergy Active clindamycin Clindamycin Unknown Drug Allergy Act robbin Latex Latex Unknown Allergy Active Penicillin Unknown Drug Allergy Active Shellfish (FN) Shellfish-derived Products Unknown Drug Allergy Active REASON FOR REFERRAL No Information MEDICATIONS Medication SIG (Take, Route, Fr equency, Duration) Notes Start Date End Date Status Work Note-Appointment . . . Pt had a [facility] appointment today for . 09/08/2021 Active IMMUNIZATIONS Vaccine Route Administration Date Status Comme nts COVID-19 Pfizer BioNTech Vaccine Unknown 06/19/2021 Administered First Dose:12/03/20 Second Dose:12/24/20 SOCIAL HISTORY Tobacco Use: Social History Observation Description Date Details (start date - stop date) Never Smoker NA - NA Sex Assigned At : Social History Observation Description Sex Assigned At Unknown Tobacco Use/Smoking Question Answer Notes Are you a: nonsmoker Additional Findings: Tobacco Non-User Current no n-smoker Alcohol Screen Question Answer Notes Did you have a drink containing alcohol in the p ast year? No Points 0 Interpretation Negative Tobacco use other than smoking: Question Answer Notes Are you an other tobacco user? No PROBLEMS Problem Type ICD Code Onset Dates Problem Status W/U Status Risk SNOMED Code Notes Problem Plantar wart (B07.0) Active confirmed 26241129 PLAN OF TREATMENT No Information Insurance Providers Payer Name Payer Address Payer Phone Subscriber Number Group Number Insured Name Patient Relationship to Insured Coverage Start Date Coverage End Date [facility] [address] [place] [address] [phone] [id number] Kathryn Fregoso Self - patient is the insured MEDICAL (GENERAL) HISTORY Medical History History ICD Code Arthritis Headaches/Migraines Chicken pox Surgical History Surgery Date(Month/Year) (premature) 1994,1997,2002 Ar[facility] 04/23/2021 Hand Surgery 04/2021
--- OUTSIDE RECORDS SUMMARY | 2023-07-10 03:21 | XMS_ITS | Continuity of Care Document ---
Author Name Unknown Organization [facility] Address [address] [place] [address]- Care Team Providers Care Ropeman Name Role Phone Ric SELLERS, Bonnie Primary Care Physician Encounter [id number] Date(s): 08/05/20 - 09/04/20 [facility] [address] [place] [address]- Allergies, Adverse Reactions, Alerts Substance Reaction Severity [...]
--- NOTE | 2023-07-10 03:56 | ED_ITS ---
HPI - Nausea/Vomiting/Diarrhea General Chief complaint: Abdominal Pain Stated complaint: Blood in stool Time Seen by Provider: 07/10/23 03:52 Source: patient Mode of arrival: ambulatory Limitations: no limitations History of Present Illness HPI Narrative: Patient was seen here for diarrhea after returning from [facility] diagnosed enteritis discharged on Cipro and Flagyl comes back as still having the diarrhea and diffuse abdominal discomfort stool is watery with slight amount of bright red no fever no vomiting no nausea Related Data Previous Rx's Medication Instructions Recorded ciprofloxacin HCl 500 mg tablet 500 mg PO BID #10 tabs 07/09/23 (Cipro) dicyclomine 20 mg tablet 20 mg PO QID PRN abdominal pain 07/09/23 #20 tabs metronidazole 500 mg tablet 500 mg PO BID 5 days #10 tabs 07/09/23 ondansetron 4 mg disintegrating 4 mg PO Q6-8H PRN nausea and 07/09/23 tablet vomiting #7 tabs Allergies Allergy/AdvReac Type Severity Reaction Status Date / Time clindamycin AdvReac Unknown Verified 07/09/23 01:25 iodine AdvReac Rash Verified 07/09/23 01:24 Latex, Natural Rubber AdvReac Hives Verified 07/09/23 01:24 Penicillins AdvReac Anaphylaxis Verified 07/09/23 01:23 seafood AdvReac Hives Verified 07/09/23 01:26 Review of Systems Review of Systems: Yes all other systems are reviewed and are negative [facility] Social History Social History Alcohol intake: never Smoked in Last 30 Days: No Advance Directives: No Advance Directives Information Provided: No Physical Exam Vital Signs: Vital Signs: Last Vital Signs Temp 97.9 F 07/10/23 03:05 Pulse 90 07/10/23 03:05 Resp 18 07/10/23 03:05 BP 132/81 07/10/23 03:05 Pulse Ox 98 07/10/23 03:05 O2 Del Method Room Air 07/10/23 03:05 BMI result Body Mass Index 26.9 Appearance: Alert. Oriented X3. No acute distress. ENT: Pharynx normal. Oral Mucosa moist Neck: Normal inspection. Neck supple. CVS: Normal heart rate and rhythm. Pulses normal. Respiratory: No respiratory distress. Equal air entry bilateral, Abdomen: Soft , diffuse tenderness Bowel sounds are present, no mass palpable, no CVA tenderness Skin: Skin warm and dry. Normal skin color. Normal skin turgor. Extremities: No lower extremity edema. No calf tenderness Neuro: Oriented X 3. Medications Administered Discontinued Medications Generic Name Dose Route Start Last Admin Trade Name Freq PRN Reason Stop Dose Admin Loperamide HCl 4 mg 07/10/23 03:56 07/10/23 04:07 Loperamide Hcl 2 Mg Capsule PO 07/10/23 03:57 4 mg ONCE ONE Administration Medical Decision Making Medical Decision Making [facility] Narrative: Patient With enteritis on Cipro and Flagyl still having diarrhea with small amou nt of blood had 1 bowel movement in the ER sample was sent for GI panel otherwise patient feeling better taking p.o. fluids will discharge patient home advised to continue her medications Differential Diagnosis Differential Diagnoses: The differential diagnosis associated with the presentation includes Enteritis/parasite infection Admission/Observation Consideration of admission/observation: Escalation of care including admission/observation considered Discharge Plan Discharge Clinical Impression: Enteritis Patient Disposition: Home, Self-Care Instructions: Enteritis (ED) Additional Instructions: Continue taking medication as prescribed during last visit Take Imodium 1 tablet every 6 hours as needed for severe diarrhea Prescriptions: No Action ciprofloxacin HCl [Cipro] 500 mg tablet 500 mg PO BID Qty: 10 0RF metronidazole 500 mg tablet 500 mg PO BID 5 Days Qty: 10 0RF dicyclomine 20 mg tablet 20 mg PO QID PRN (Reason: abdominal pain) Qty: 20 0RF ondansetron 4 mg tablet,disintegrating 4 mg PO Q6-8H PRN (Reason: nausea and vomiting) Qty: 7 0RF Stand Alone Forms: Work/School Release Interventions: ED Discharge Assessment Last Done: 07/10/23 05:56 Discharge Date/Time: 07/10/23 06:01
[2023-07-10] MEDS: Loperamide HCl 2 MG CAPSULE 4 MG PO (04:07)
== END 2023-07-10 06:01 | disposition home or self-care (01) ==
PROVIDERS: Emergency Provider Internal Medicine; PCP Internal Medicine
DX: K52.9 Noninfective gastroenteritis and colitis, unspecified (principal); N39.0 Urinary tract infection, site not specified; B96.20 Unspecified Escherichia coli [E. coli] as the cause of diseases classified elsewhere; R10.9 Unspecified abdominal pain; K92.1 Melena
CPT/HCPCS: 36415; 87329; 87507; 99284